=== PATIENT | female | born 1970 | race Caucasian/White ===

== ENCOUNTER 2016-06-15 19:27 | Emergency (ER) | payer OTHER, BC ==
[2016-06-15] MEDS ORDERED: ASPIRIN 81 MG TABLET, CHEWABLE PO ONE (20:21)
--- NOTE | 2016-06-15 20:50 | ER Document Report ---
ED Medical Screen (RME) - General Chief Complaint: Chest Tightness Stated Complaint: CHEST TIGHTNESS Notes: h/o svt with two ablations. she was wearing a 48 heart monitor which she turned in on wednesday constant sob and chest pressure for 7 days. 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 A comprehensive ED assessment and evaluation of the patient, analysis of test results and completion of the medical decision making process will be conducted by additional ED providers. TRAVEL OUTSIDE OF THE [place] IN LAST 30 DAYS: No - Related Data Allergies/Adverse Reactions: No Known Allergies Allergy (Verified 07/30/15 08:37) Past Medical History - Past Medical History Cardiac Medical History: Denies: Hx Coronary Artery Disease, Hx Heart Attack, Hx Hypertension Pulmonary Medical History: Denies: Hx Asthma, Hx Bronchitis, Hx COPD, Hx Pneumonia Neurological Medical History: Denies: Hx Cerebrovascular Accident, Hx Seizures Musculoskeltal Medical History: Denies Hx Arthritis Past Surgical History: Reports: Hx Hysterectomy - Immunizations Hx Diphtheria, Pertussis, Tetanus Vaccination: Yes
[2016-06-15 22:50] LABS: ABSOLUTE EOSINOPHILS # (AUTO) 0.2 10^3/uL (0.0-0.6); ABSOLUTE LYMPHOCYTES (AUTO) 1.6 10^3/uL (0.5-4.7); ABSOLUTE MONOCYTES (AUTO) 0.5 10^3/uL (0.1-1.4); ABSOLUTE NEUT (AUTO) 4.2 10^3/uL (1.7-8.2); BASOPHILS % (AUTO) 0.5 % (0-2); EOSINOPHILS % (AUTO) 2.3 % (0-6); HEMATOCRIT 43.2 % (36.0-47.0); HEMOGLOBIN 14.1 g/dL (12.0-15.5); HGB HCT DIFFERENCE -0.9; LYMPHOCYTES % (AUTO) 24.4 % (13-45); MEAN CORPUSCULAR HGB CONC 32.7 g/dL (32.0-36.0); MEAN CORPUSCULAR VOLUME 89 fl (80-97); MONOCYTES % (AUTO) 8.3 % (3-13); RED BLOOD COUNT 4.87 10^6/uL (3.72-5.28); RED CELL DISTRIBUTION WIDTH 14.1 % (11.5-14.0); SEGMENTED NEUTROPHILS % (AUTO) 64.5 % (42-78); WHITE BLOOD COUNT 6.6 10^3/uL (4.0-10.5)
--- NOTE | 2016-06-15 23:11 | ER Document Report ---
ED General - General Chief Complaint: Chest Tightness Stated Complaint: CHEST TIGHTNESS Notes: Patient is 45-year-old female who presents with complaint of pressure type sensation in her chest and goes until left shoulder and into her left arm. She says she's had this in the past whenever she is about to go to [facility]. She says she feels is a 4 heart is skipping beats. She had a previous ablation. She's followed by Dr. Chi, [employer] in [place]. She saw him last week when the symptoms first started. She was placed on a Holter monitor. She has not yet received the results of the Holter monitor. No fevers. No vomiting. No history of coronary disease. Showed a normal stress test 2-3 years ago. No other complaints at this time. TRAVEL OUTSIDE OF THE [place] IN LAST 30 DAYS: No - Related Data Allergies/Adverse Reactions: No Known Allergies Allergy (Verified 07/30/15 08:37) Past Medical History - Social History Smoking Status: Unknown if Ever Smoked Frequency of alcohol use: None Drug Abuse: None Family History: Reviewed & Not Pertinent Patient has suicidal ideation: No Patient has homicidal ideation: No - Past Medical History Cardiac Medical History: Denies: Hx Coronary Artery Disease, Hx Heart Attack, Hx Hypertension Pulmonary Medical History: Denies: Hx Asthma, Hx Bronchitis, Hx COPD, Hx Pneumonia Neurological Medical History: Denies: Hx Cerebrovascular Accident, Hx Seizures Renal/ Medical History: Denies: Hx Peritoneal Dialysis Musculoskeltal Medical History: Denies Hx Arthritis Past Surgical History: Reports: Hx Hysterectomy - Immunizations Hx Diphtheria, Pertussis, Tetanus Vaccination: Yes Review of Systems - Review of Systems Notes: My Normal Review Basic REVIEW OF SYSTEMS: CONSTITUTIONAL : Denies fever, chills, or sweats. Denies recent illness. EENT: Denies eye, ear, throat, or mouth pain or symptoms. Denies nasal or sinus congestion. CARDIOVASCULAR: Chest pressure. Palpitations. RESPIRATORY: Denies cough, cold, or chest congestion. Denies shortness of breath, difficulty breathing, or wheezing. GASTROINTESTINAL: Denies abdominal pain. Denies nausea, vomiting, or diarrhea. Denies constipation. Last BM: MUSCULOSKELETAL: Denies neck or back pain or joint pain or swelling. SKIN: Denies rash or skin lesions. NEUROLOGICAL: Denies altered mental status or loss of consciousness. Denies headache. Denies weakness or paralysis or loss of use of either side. Denies problems with gait or speech. Denies sensory or motor loss. ALL OTHER SYSTEMS REVIEWED AND NEGATIVE. Physical Exam - Vital signs Vitals: Temp Pulse Resp BP Pulse Ox 97.5 F 67 16 107/45 L 100 06/15/16 20:43 06/15/16 20:43 06/15/16 20:43 06/15/16 20:43 06/15/16 20:43 - Notes Notes: General Appearance: Well nourished, alert, cooperative, no acute distress, no obvious discomfort. Well-appearing. Vitals: reviewed, See vital signs table. Head: no swelling or tenderness to the head Eyes: PERRL, EOMI, Conjuctiva clear Mouth: No decreasd moisture Neck: Supple, no neck tenderness, No thyromegaly Lungs: No wheezing, No rales, No rhonci, No accessory muscle use, good air exchange bilaterally. Heart: Normal rate, irregular rythm, No murmur, no rub Abdomen: Normal BS, soft, No rigidity, No abdominal tenderness, No guarding, no rebound, no abdominal masses, no organomegaly Extremities: strength 5/5 in all extremities, good pulses in all extremities, no swelling or tenderness in the extremities, no edema. Skin: warm, dry, appropriate color, no rash Neuro: speech clear, oriented x 3, normal affect, responds appropriately to questions. Course - Vital Signs Vital signs: Temp Pulse Resp BP Pulse Ox 97.5 F 67 16 107/45 L 100 06/15/16 20:43 06/15/16 20:43 06/15/16 20:43 06/15/16 20:43 06/15/16 20:43 - Laboratory Result Diagrams: 06/15/16 22:40 06/15/16 23:09 Laboratory results interpreted by me: 06/15/16 06/15/16 22:40 23:09 RDW 14.1 H Chloride 108 H BUN 24 H Alkaline Phosphatase 131 H Total Protein 6.2 L - EKG Interpretation by Me Additional EKG results interpreted by me: 06/15/16 23:10 EKG is reviewed and interpreted by me. EKG shows normal sinus rhythm with rate of [address] segment elevation or depression. No ischemic T wave inversions. Occasional PVC. DC interval, QRS duration, QTC intervals are within normal range. No old EKG available for comparison. - Transfer of Care Notes: 06/16/16 00:59 Patient's his symptoms he'll just like when she has felt the past but before she goes and SVT. Her symptoms have now been ongoing for 6 days. She's had no episodes of SVT. On the monitor she has recurrent PACs. On her EKG she had no evidence of ongoing ischemia. Her cardiac enzymes are negative despite her having the pressure sensation in her chest for 6 days. I do not suspect coronary artery disease is playing a role in her symptoms. Symptoms could be related to frequent PACs which she is now having which she does not room her having in the past. This is not uncommon for individuals who have received ablations in the past. At this time feel she is safe to be discharged home. 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 I encourage her to call him in the morning to make close follow-up appointment. I encourage her to return to ER immediately if she has worsening of her symptoms, difficulty breathing, rapid heartbeat, or she feels unwell. Patient agrees with plan will be discharged home. Dictation of this chart was performed using voice recognition software; therefore, there may be some unintended grammatical errors. Discharge - Discharge Clinical Impression: Palpitations Chest pain Qualifiers: Chest pain type: unspecified Qualified Code(s): R07.9 - Chest pain, unspecified Condition: Good Disposition: HOME, SELF-CARE Additional Instructions: CHEST PAIN OF UNCLEAR CAUSE: The exact cause of your chest pain isn't clear. Fortunately, there is no evidence of a dangerous medical condition. Further testing may be required to find the source of the pain. Most often, we find that this pain is coming from the chest wall -- the muscles or rib joints in the chest. But chest pain can come from the lung and lung lining, the esophagus, the heart valves or heart lining, and even the stomach or gallbladder. Rest. Eat lightly until the pain is gone. We may prescribe medicine for pain and inflammation. You should call the physician immediately if the pain radiates to the shoulder, jaw or arms; if you start to run a fever or develop a cough; or if you develop shortness of breath, or other new or alarming symptoms. NORMAL EXAM AND WORKUP: At this time, your examination and workup show no significant abnormality. No significant abnormal physical findings were noted. All laboratory, EKG, and imaging (x-ray) studies that were ordered show no significant abnormality. Although your examination and all studies that were ordered showed no significant abnormal finding, there are no examinations and no studies that are 100% accurate. There is always the possibility that some abnormality could exist and not be detected with physical examination or within the limits and capabilities of laboratory and other studies. You should return or follow up as you were instructed on your visit today for further evaluation if your symptoms do not resolve. FOLLOW-UP CARE: If you have been referred to a physician for follow-up care, call the physician s office for an appointment as you were instructed or within the next two days. If you experience worsening or a significant change in your symptoms, notify the physician immediately or return to the Emergency Department at any time for re-evaluation. Please return to ER immediately if you have worsening pain, difficulty breathing , rapid heartbeat, or feel unwell.
[2016-06-15 23:40] LABS: ALANINE AMINOTRANSFERASE 32 U/L (9-52); ALBUMIN 3.8 g/dL (3.5-5.0); ALKALINE PHOSPHATASE 131 U/L (38-126); ANION GAP 8 (5-19); ASPARTATE AMINO TRANSFERASE 23 U/L (14-36); BILIRUBIN,TOTAL 0.6 mg/dL (0.2-1.3); BLOOD UREA NITROGEN 24 mg/dL (7-20); CALCIUM 9.3 mg/dL (8.4-10.2); CARBON DIOXIDE 26 mmol/L (22-30); CHLORIDE 108 mmol/L (98-107); CREATINE KINASE 96 U/L (30-135); CREATININE RESULT 0.65 mg/dL (0.52-1.25); GLUCOSE 89 mg/dL (75-110); SODIUM 142.3 mmol/L (137-145); TOTAL PROTEIN 6.2 g/dL (6.3-8.2)
[2016-06-15 23:51] LABS: CREATINE KINASE MB 2.01 ng/mL (<4.55)
[2016-06-15] MEDS ORDERED: LORAZEPAM INJ 2 MG/1 ML VIAL IV ONE (23:53)
[2016-06-15 23:57] LABS: TROPONIN I < 0.012 ng/mL
[2016-06-16 01:34] VITALS: BP 98/63
--- NOTE | 2016-06-16 08:04 | EKG REPORT ---
SEVERITY:- ABNORMAL ECG - SINUS RHYTHM PROBABLE LEFT ATRIAL ABNORMALITY LEFT ANTERIOR FASCICULAR BLOCK BORDERLINE T WAVE ABNORMALITIES : Confirmed by: Cesar Bassett MD 16-Jun-2016 08:03:32
== END 2016-06-16 01:34 | disposition home or self-care (01) ==
LOC: ER 19:27
DX: R07.89 Other chest pain (principal); R00.2 Palpitations; I49.1 Atrial premature depolarization; Z86.79 Personal history of other diseases of the circulatory system; Z98.890 Other specified postprocedural states
CPT/HCPCS: 93005; 99285; 96374; 36415; 82553; 82550; 83735; 85025; 80053; 84484; 71010; 93010; J2060

== ENCOUNTER → 2017-10-22 | Outpatient (CLI) | payer OTHER, BC ==
--- NOTE | 2017-10-22 14:00 | WOMENS IMAGING REPORT ---
EXAM DESCRIPTION: 3D SCREENING MAMMO BILAT COMPLETED DATE/TIME: 10/22/2017 10:06 am REASON FOR STUDY: ROUTINE SCREENING;Z12.31 Z12.31 ENCNTR SCREEN MAMMOGRAM FOR MALIGNANT NEOPLASM OF BENOIT COMPARISON: 2012, [id number] TECHNIQUE: Standard craniocaudal and mediolateral oblique views of each breast recorded using digita l acquisition and breast tomosynthesis. LIMITATIONS: None. FINDINGS: No masses, calcifications or architectural distortion. No areas of suspicion. Read with the assistance of CAD. .[facility] - R2 Cenova Version 1.3 .[facility] Imaging - R2 Cenova Version 1.3 .[facility] Imaging - R2 Cenova Version 2.4 .[facility] - R2 Cenova Version 2.4 .[facility] - R2 Percher Version 9.2 IMPRESSION: NORMAL MAMMOGRAM. BIRADS 1. BREAST DENSITY: b. There are scattered areas of fibroglandular density. BIRAD: 1 NEGATIVE RECOMMENDATION: ROUTINE SCREENING COMMENT: The patient has been notified of the results by letter per SA requirements. Additional no tification policies are in place for contacting patient with suspicious or incomplete findings. Quality ID #225: The [employer] recommends an annual screening mammogram for women aged 40 years or over. This facility utilizes a reminder system to ensure that all patients receive reminder letters, and/or direct phone calls for appointments. This includes reminders for routine scr eening mammograms, diagnostic mammograms, or other Breast Imaging Interventions when appropriate. Th is patient will be placed in the appropriate reminder system. The [employer] (ACR) has developed recommendations for screening MRI of the breast s in certain patient populations, to be used in conjunction with mammography. Breast MRI surveillanc e may be appropriate for women with more than 20% lifetime risk of developing breast cancer as deter mined by genetic testing, significant family history of the disease, or history of mantle radiation f or Hodgkins Disease. ACR Practice Guidelines 2008. DBT Technology DBT is a type of tomographic mammography. With conventional mammography, overlapping breast tissue ma y make lesions difficult to detect, even with good compression. DBT uses an x-ray tube that rotates a round the breast, taking images at different angles. These images are then combined to create thin sl ices of the breast that the radiologist can view as a 3D reconstruction. The Nonpareil unit can perform full-field digital mammograms (2D imaging); or DBT (3D imaging); or both, in a combination mode that quickly performs both the mammogram and the tomosynthesis scan while the breast is still compressed. PQRS 6045F: Fluoroscopic imaging is not utilized for breast tomosynthesis. TECHNICAL DOCUMENTATION: FINDING NUMBER: (1) ASSESSMENT: (1) JOB ID: [id number] [employer]- All Rights Reserved Reading location - IP/workstation name: [email or web address]
== END ==
LOC: WI 09:04
PROVIDERS: ATTEND Advanced Practice Midwife
DX: Z12.31 Encounter for screening mammogram for malignant neoplasm of breast (principal)
CPT/HCPCS: 77063; 77067

== ENCOUNTER → 2019-07-04 | Outpatient (CLI) | payer OTHER, BC ==
--- NOTE | 2019-07-04 09:17 | WOMENS IMAGING REPORT ---
EXAM DESCRIPTION: 3D SCREENING MAMMO BILAT COMPLETED DATE/TIME: 07/04/2019 8:23 am REASON FOR STUDY: Z12.31 SCREENING MAMMO Z12.31 ENCNTR SCREEN MAMMOGRAM FOR MALIGNANT NEOPLASM OF B RE COMPARISON: 2014 to 2017 EXAM PARAMETERS: Views: Standard craniocaudal and mediolateral oblique views of each breast recorded using digital acquisition and breast tomosynthesis. Read with the assistance of CAD. .[facility] - R2 Buzzle Buffer Version 9.2 LIMITATIONS: None. FINDINGS: No suspicious masses, suspicious calcifications or architectural distortion. No areas of c oncern. IMPRESSION: NEGATIVE MAMMOGRAM. BIRADS 1. BREAST DENSITY: b. There are scattered areas of fibroglandular density. BIRAD: ASSESSMENT: 1 NEGATIVE RECOMMENDATION: ROUTINE SCREENING COMMENT: The patient has been notified of the results by letter per MQSA requirements. Additional no tification policies are in place for contacting patient with suspicious or incomplete findings. Quality ID #225: The [employer] recommends an annual screening mammogram for women aged 40 years or over. This facility utilizes a reminder system to ensure that all patients receive reminder letters, and/or direct phone calls for appointments. This includes reminders for routine scr eening mammograms, diagnostic mammograms, or other Breast Imaging Interventions when appropriate. Th is patient will be placed in the appropriate reminder system. TECHNICAL DOCUMENTATION: FINDING NUMBER: (1) ASSESSMENT: (1) JOB ID: [id number] [employer]- All Rights Reserved Reading location - IP/workstation name: [email or web address]
== END ==
LOC: WI 07:45
PROVIDERS: ATTEND Advanced Practice Midwife
DX: Z12.31 Encounter for screening mammogram for malignant neoplasm of breast (principal)
CPT/HCPCS: 77063; 77067

== ENCOUNTER → 2020-04-10 | Outpatient (CLI) | payer OTHER, BC ==
--- NOTE | 2020-04-10 17:09 | RADIOLOGY REPORT (SQ) ---
EXAM DESCRIPTION: U/S THYROID/SFT TISS HD NECK IMAGES COMPLETED DATE/TIME: 04/10/2020 3:49 pm REASON FOR STUDY: (R13.10)DYSPHAGIA, UNSPECIFIED;(Z13.29)ENCOUNTER FOR SCREENING FOR OTH SUSP R13.10 DYSPHAGIA, UNSPECIFIED Z13.29 ENCOUNTER FOR SCREENING FOR OTH SUSPECTED ENDOCRINE D dysphagia. S creening for thyroid disorder. Family history thyroid cancer. COMPARISON: None. TECHNIQUE: Dynamic and static kennedy-scale images acquired of the thyroid gland. Selected additional c olor/power Doppler images recorded. All images stored to PACS. LIMITATIONS: None. FINDINGS: RIGHT LOBE: Normal size. Homogeneous echotexture. 4 mm spongiform nodule at the right mi dpole. LEFT LOBE: Normal size. Homogeneous echotexture. No cystic or solid masses. ISTHMUS: Normal size. Homogeneous echotexture. No cystic or solid masses. OTHER: No other significant finding. IMPRESSION: Normal thyroid ultrasound. No suspicious thyroid nodules. TECHNICAL DOCUMENTATION: JOB ID: [id number] 2010 [employer]- All Rights Reserved Reading location - IP/workstation name: [email or web address]
== END ==
LOC: RAD 16:24
PROVIDERS: ATTEND Registered Nurse
DX: R13.10 Dysphagia, unspecified (principal); Z13.29 Encounter for screening for other suspected endocrine disorder
CPT/HCPCS: 76536

== ENCOUNTER 2020-05-02 06:32 | Observation (INO) | payer OTHER, BC ==
[2020-05-02] MEDS ORDERED: NORMAL SALINE 1000 ML 1,000 ML IV ONE ×2 (07:02→11:24)
[2020-05-02] MEDS ORDERED: MORPHINE SULFATE 10 MG/ML INJ IV ONE (07:03)
[2020-05-02] MEDS ORDERED: ONDANSETRON HCL INJ/PF 4 MG/2 ML SDV IV ONE (07:03)
[2020-05-02 07:44] LABS: HEMOGLOBIN 12.8 g/dL (12.0-15.5); MEAN CORPUSCULAR HEMOGLOBIN 28.9 pg (27.0-33.4); MEAN CORPUSCULAR HGB CONC 32.7 g/dL (32.0-36.0); MEAN CORPUSCULAR VOLUME 88 fl (80-97); RED BLOOD COUNT 4.42 10^6/uL (3.72-5.28); RED CELL DISTRIBUTION WIDTH 15.6 % (11.5-14.0); WHITE BLOOD COUNT 14.7 10^3/uL (4.0-10.5)
[2020-05-02 08:01] LABS: ABSOLUTE LYMPHOCYTES# (MANUAL) 0.6 10^3/uL (0.5-4.7); ABSOLUTE MONOCYTES # (MANUAL) 0.3 10^3/uL (0.1-1.4); BAND NEUTROPHILS % (MANUAL) 2 % (3-5); BASOPHILS % (MANUAL) 0 % (0-2); EOSINOPHILS % (MANUAL) 0 % (0-6); LYMPHOCYTES % (MANUAL) 4 % (13-45); MONOCYTES % (MANUAL) 2 % (3-13); SEGMENTED NEUTROPHILS % (MAN) 92 % (42-78); TOTAL CELLS COUNTED 100
[2020-05-02 08:02] LABS: PLATELET CLUMPS PRESENT; PLATELET COMMENT ADEQUATE; PLATELET COUNT 253 10^3/uL (150-450); RBC MORPHOLOGY COMMENT NORMO-CYTIC/CHROMIC
[2020-05-02 08:15] LABS: ALKALINE PHOSPHATASE 143 U/L (38-126); ASPARTATE AMINO TRANSFERASE 27 U/L (14-36); BILIRUBIN,TOTAL 0.7 mg/dL (0.2-1.3); BLOOD UREA NITROGEN 12 mg/dL (7-20); CALCIUM 9.2 mg/dL (8.4-10.2); CARBON DIOXIDE 28 mmol/L (22-30); CHLORIDE 105 mmol/L (98-107); GLUCOSE 126 mg/dL (75-110); POTASSIUM 3.9 mmol/L (3.6-5.0); TOTAL PROTEIN 6.5 g/dL (6.3-8.2)
[2020-05-02 08:22] LABS: ANION GAP 5 (5-19)
[2020-05-02] MEDS ORDERED: KETOROLAC TROMETHAMINE 60 MG/2 ML SDV ONE (09:02)
[2020-05-02] MEDS ORDERED: METOCLOPRAMIDE HCL INJ/PF 10 MG/2 ML SDV ONE (09:02)
[2020-05-02] MEDS ORDERED: DIPHENHYDRAMINE HCL 50 MG/ML VIAL ONE (09:02)
[2020-05-02] MEDS ORDERED: ROCURONIUM BROMIDE INJ 50 MG/5 ML VIAL IV ONE (09:02)
[2020-05-02] MEDS ORDERED: SUCCINYLCHOLINE CHLORIDE INJ 200 MG/10 ML VIAL ONE (09:02)
[2020-05-02] MEDS ORDERED: ONDANSETRON HCL INJ/PF 4 MG/2 ML SDV ONE (09:02)
[2020-05-02] MEDS ORDERED: DEXAMETHASONE SOD PHOSPHATE INJ 4 MG/1 ML VIAL ONE (09:02)
[2020-05-02 09:44] LABS: APPEARANCE,URINE CLEAR; BILIRUBIN,URINE NEGATIVE (NEGATIVE); COLOR,URINE YELLOW; GLUCOSE, URINE NEGATIVE (NEGATIVE); KETONES,URINE TRACE mg/dL (NEGATIVE); PROTEIN,URINE NEGATIVE (NEGATIVE); URINE SPECIFIC GRAVITY 1.014; UROBILINOGEN,URINE NEGATIVE mg/dL (<2.0)
--- NOTE | 2020-05-02 10:32 | RADIOLOGY REPORT (SQ) ---
EXAM DESCRIPTION: CT ABD/PELVIS WITH IV ORAL IMAGES COMPLETED DATE/TIME: 05/02/2020 10:12 am REASON FOR STUDY: rlq pain COMPARISON: None. TECHNIQUE: CT scan of the abdomen and pelvis performed using helical scanning technique with dynamic intravenous contrast injection. No oral contrast. Images reviewed with lung, soft tissue, and bone windows. Reconstructed coronal and sagittal MPR images reviewed. Delayed images for evaluation of the urinary system also acquired. All images stored on PACS. All CT scanners at this facility use dose modulation, iterative reconstruction, and/or weight based d osing when appropriate to reduce radiation dose to as low as reasonably achievable (ALARA). [facility]: Dose Right [facility]: CareDose [facility]: Dose Right [facility]: Teradose 4D [facility]: Sentons CONTRAST TYPE AND DOSE: contrast/concentration: Isovue 350.00 mmol/ml; Total Contrast Delivered: 83. 0 ml; Total Saline Delivered: 40.0 ml RENAL FUNCTION: BUN 12; creatinine 0.57 RADIATION DOSE: CT Rad equipment meets quality standard of care and radiation dose reduction techniq ues were employed. CTDIvol: 6.4 - 6.4 mGy. DLP: 650 mGy-cm.. LIMITATIONS: None. FINDINGS: LOWER CHEST: No significant findings. No nodules or infiltrates. LIVER: Normal size. No masses. Mild intrahepatic biliary dilatation. SPLEEN: Normal size. No focal lesions. PANCREAS: No masses. No significant calcifications. No adjacent inflammation or peripancreatic fluid collections. Pancreatic duct not dilated. GALLBLADDER: Surgically absent. ADRENAL GLANDS: No significant masses or asymmetry. RIGHT KIDNEY AND URETER: No solid masses. Superior pole cortical cyst. No significant calcificatio ns. No hydronephrosis or hydroureter. LEFT KIDNEY AND URETER: No solid masses. Focal scarring of the superior pole ports tear cortex. No significant calcifications. No hydronephrosis or hydroureter. AORTA AND VESSELS: No aneurysm. No dissection. Renal arteries, SMA, celiac without stenosis. RETROPERITONEUM: No retroperitoneal adenopathy, hemorrhage or masses. BOWEL AND PERITONEAL CAVITY: Status post bariatric surgery. No bowel obstruction. No mass. APPENDIX: The appendix is fluid-filled and dilated to 14 mm in greatest orthogonal dimension, demonst rating mural thickening and surrounding mesenteric fat stranding. No evidence of perforation. PELVIS: No mass. No free fluid. Normal bladder. ABDOMINAL WALL: No masses. No hernias. BONES: Degenerative changes are seen at hips and spine. OTHER: No other significant finding. IMPRESSION: Uncomplicated acute appendicitis. Chronic and incidental findings as detailed above. TECHNICAL DOCUMENTATION: JOB ID: [id number] Quality ID # [id number]: Final reports with documentation of one or more dose reduction techniques (e.g., Au tomated exposure control, adjustment of the mA and/or kV according to patient size, use of iterative reconstruction technique) 2010 [employer]- All Rights Reserved Reading location - IP/workstation name: [email or web address]
--- NOTE | 2020-05-02 11:23 | ER Document Report ---
ED General - General Chief Complaint: Abdominal Pain >50 Stated Complaint: ABDOMINAL PAIN Time Seen by Provider: 05/02/20 06:57 Primary Care Provider: MARY QUINONEZ MD [Primary Care Provider] - Follow up as needed Mode of Arrival: Ambulatory Information source: Patient TRAVEL OUTSIDE OF THE [place] IN LAST 30 DAYS: No - HPI Notes: Patient presents with right lower quadrant abdominal pain. States started yesterday. Is been constant and progressive becoming worse. She states she is not had anything to eat or drink since yesterday at supper. She is been nauseous with no vomiting. She denies any vaginal symptoms. No problems with urine or stool. This pain is severe and worse with movement. Is better with rest. No significant radiation of the pain. States she did have a gastric bypass in 2007 but has had no problems with the gastric bypass since the surgery. - Related Data Allergies/Adverse Reactions: No Known Allergies Allergy (Verified 06/16/16 05:41) Home Medications: methotraxate, folic acid, Past Medical History - General Information source: Patient - Social History Smoking Status: Never Smoker Frequency of alcohol use: None Drug Abuse: None Family History: Reviewed & Not Pertinent - Past Medical History Cardiac Medical History: Denies: Hx Coronary Artery Disease, Hx Heart Attack, Hx Hypertension Pulmonary Medical History: Denies: Hx Asthma, Hx Bronchitis, Hx COPD, Hx Pneumonia Neurological Medical History: Denies: Hx Cerebrovascular Accident, Hx Seizures Renal/ Medical History: Denies: Hx Peritoneal Dialysis Musculoskeletal Medical History: Denies Hx Arthritis Past Surgical History: Reports: Hx Hysterectomy - Immunizations Hx Diphtheria, Pertussis, Tetanus Vaccination: Yes Review of Systems - Review of Systems Constitutional: denies: Chills, Fever Cardiovascular: denies: Chest pain, Palpitations Respiratory: denies: Cough, Short of breath -: Yes All other systems reviewed and negative Physical Exam - Vital signs Vitals: Temp Pulse Resp BP Pulse Ox 97.8 F 90 24 H 108/50 L 98 05/02/20 06:40 05/02/20 06:40 05/02/20 06:40 05/02/20 06:40 05/02/20 06:40 Interpretation: Normal - General General appearance: Appears well, Alert - HEENT Head: Normocephalic, Atraumatic Eyes: Normal Pupils: PERRL - Respiratory Respiratory status: No respiratory distress Chest status: Nontender Breath sounds: Normal Chest palpation: Normal - Cardiovascular Rhythm: Regular Heart sounds: Normal auscultation Murmur: No - Abdominal Inspection: Normal Distension: No distension Bowel sounds: Normal Tenderness: Tender - Right lower quadrant is tender to palpation with positive rebound and guarding. Patient does have peritoneal signs. Organomegaly: No organomegaly - Back Back: Normal, Nontender - Extremities General upper extremity: Normal inspection, Nontender, Normal color, Normal ROM, Normal temperature General lower extremity: Normal inspection, Nontender, Normal color, Normal ROM, Normal temperature, Normal weight bearing. No: Moon's sign - Neurological Neuro grossly intact: Yes Cognition: Normal Orientation: AAOx4 Calvin Coma Scale Eye Opening: Spontaneous Serene Coma Scale Verbal: Oriented Calvin Coma Scale Motor: Obeys Commands Serene Coma Scale Total: 15 Speech: Normal Motor strength normal: LUE, RUE, LLE, RLE Sensory: Normal - Psychological Associated symptoms: Normal affect, Normal mood - Skin Skin Temperature: Warm Skin Moisture: Dry Skin Color: Normal Course - Re-evaluation Re-evalutation: 05/02/20 11:22 Patient presents with right lower quadrant abdominal pain. CT scan is consistent with appendicitis. It appears to be uncomplicated at this time and patient is currently stable with stable hemodynamics. - Vital Signs Vital signs: Temp Pulse Resp BP Pulse Ox 99.0 F 112 H 22 H 132/47 H 98 05/02/20 10:59 05/02/20 10:59 05/02/20 10:59 05/02/20 10:59 05/02/20 10:59 - Laboratory Result Diagrams: 05/02/20 07:28 05/02/20 07:28 Laboratory results interpreted by me: 05/02/20 05/02/20 05/02/20 07:28 07:28 09:24 WBC 14.7 H RDW 15.6 H Seg Neuts % (Manual) 92 H Band Neutrophils % 2 L Lymphocytes % (Manual) 4 L Monocytes % (Manual) 2 L Abs Neuts (Manual) 13.8 H Glucose 126 H Alkaline Phosphatase 143 H Urine Ketones TRACE H Leukocyte Esterase Rfl MODERATE H - Diagnostic Test Radiology reviewed: Image reviewed, Reports reviewed Discharge - Discharge Clinical Impression: Acute appendicitis Qualifiers: Acute appendicitis type: with localized peritonitis Appendicitis gangrene presence: without gangrene Appendicitis perforation presence: without perforation Appendicitis abscess presence: without abscess Qualified Code(s): K35.30 - Acute appendicitis with localized peritonitis, without perforation or gangrene Condition: Serious Disposition: ADMITTED INPATIENT Admitting Provider: Surgicalist Unit Admitted: Surgical Floor Referrals: MARY QUINONEZ MD [Primary Care Provider] - Follow up as needed
[2020-05-02] MEDS ORDERED: SUGAMMADEX SODIUM 200 MG/2 ML SDV IV ONE (12:46)
[2020-05-02] MEDS ORDERED: MIDAZOLAM 2 MG/2 ML INJ ONE (12:46)
[2020-05-02] MEDS ORDERED: EPHEDRINE SULFATE INJ 50 MG/1 ML AMPULE ONE (12:46)
[2020-05-02] MEDS ORDERED: FENTANYL CITRATE INJ/PF 100 MCG/2 ML AMPUL ONE (12:46)
[2020-05-02] MEDS ORDERED: PROPOFOL INJ 200 MG/20 ML VIAL IV ONE (12:46)
[2020-05-02] MEDS ORDERED: BUPIVACAINE HCL 0.25 % INJ/PF (2.5 MG/1 ML) 30 ML VIAL ONE (12:46)
[2020-05-02] MEDS ORDERED: CEFAZOLIN INJ 1 GM VIAL ONE (13:13)
[2020-05-02] MEDS ORDERED: METRONIDAZOLE 500 MG/NS RTU 500 MG/100 ML RTUPB IV ONE (13:13)
[2020-05-02] MEDS ORDERED: SCOPOLAMINE HYDROBROMIDE 1.5 MG PATCH.TD72 ONE (13:21)
--- NOTE | 2020-05-02 13:27 | PDOC H&P ---
History of Present Illness Admission Date/PCP: 05/02/20 11:30 MARY QUINONEZ MD Patient complains of: abdominal pain History of Present Illness: ALEX VAZ is a 49 year old female with a 2-day history of abdominal pain. Her pain began in her right lower quadrant, and intensified throughout the night. Her pain is sharp and stabbing. It is severe (10 out of 10). It radiates to her left lower quadrant. She presented to the emergency department, where a CT scan was performed. She was found to have acute appendicitis on CT. Movement and palpation make her pain worse. Pain medications are the only thing that have made it better. She reports subjective fevers and chills. She denies melena, hematochezia, hematemesis, chest pain, shortness of breath, headache, dizziness, orthostasis, blurry vision. Past Medical History Cardiac Medical History: Denies: Coronary Artery Disease, Myocardial Infarction, Hypertension Pulmonary Medical History: Denies: Asthma, Bronchitis, Chronic Obstructive Pulmonary Disease (COPD), Pneumonia Neurological Medical History: Denies: Seizures Musculoskeltal Medical History: Denies: Arthritis Hematology: Denies: Anemia Past Surgical History Past Surgical History: Reports: Hysterectomy Social History Smoking Status: Never Smoker Hx Recreational Drug Use: No Hx Prescription Drug Abuse: No Family History Family History: Reviewed & Not Pertinent Parental Family History Reviewed: Yes Children Family History Reviewed: Yes Sibling(s) Family History Reviewed.: Yes Medication/Allergy Home Medications: Cholecalciferol (Vitamin D3) [Vitamin D] 1,000 unit PO DAILY 07/30/15 Multivit, Iron, Min #7, FA [Optisource Tablet Chew] 2 each PO BID 07/30/15 Nadolol 20 mg PO DAILY 07/30/15 Allergies/Adverse Reactions: No Known Allergies Allergy (Verified 06/16/16 05:41) Review of Systems Constitutional: PRESENT: chills, fatigue. ABSENT: headache(s), weakness Eyes: ABSENT: visual disturbances Ears: ABSENT: hearing changes Nose, Mouth, and Throat: ABSENT: mouth pain, sore throat Cardiovascular: ABSENT: chest pain Respiratory: ABSENT: cough Gastrointestinal: PRESENT: abdominal pain. ABSENT: hematemesis, hematochezia, melena Genitourinary: ABSENT: dysuria Musculoskeletal: ABSENT: back pain Integumentary: ABSENT: pruritus, rash Neurological: ABSENT: confusion, convulsions, dizziness Psychiatric: ABSENT: anxiety, depression Endocrine: ABSENT: cold intolerance, heat intolerance Hematologic/Lymphatic: ABSENT: easy bleeding, easy bruising Physical Exam Vital Signs: Temp Pulse Resp BP Pulse Ox 99.0 F 112 H 22 H 132/47 H 98 05/02/20 13:10 05/02/20 13:10 05/02/20 13:10 05/02/20 10:59 05/02/20 13:10 Intake & Output 05/01/20 05/02/20 05/03/20 06:59 06:59 06:59 Intake Total 1999 Balance 1999 Weight 73.6 kg General appearance: PRESENT: no acute distress, cooperative Head exam: PRESENT: atraumatic, normocephalic Eye exam: PRESENT: EOMI, PERRLA. ABSENT: scleral icterus Mouth exam: PRESENT: moist, neck supple Neck exam: ABSENT: meningismus, tenderness, thyromegaly Respiratory exam: PRESENT: unlabored. ABSENT: tachypnea, wheezes Cardiovascular exam: PRESENT: tachycardia GI/Abdominal exam: PRESENT: guarding, rebound, tenderness Rectal exam: PRESENT: deferred Extremities exam: ABSENT: clubbing Musculoskeletal exam: ABSENT: deformity Neurological exam: PRESENT: alert, awake, oriented to person, oriented to place, oriented to time, oriented to situation, CN II-XII grossly intact. ABSENT: motor sensory deficit Psychiatric exam: ABSENT: agitated, anxious, depressed Focused psych exam: ABSENT: delusional Skin exam: ABSENT: cyanosis, erythema, jaundice Results Laboratory Results: 05/02/20 07:28 05/02/20 07:28 05/02/20 05/02/20 05/02/20 07:28 07:28 09:24 WBC 14.7 H RBC 4.42 Hgb 12.8 Hct 39.0 MCV 88 MCH 28.9 MCHC 32.7 RDW 15.6 H Plt Count 253 Seg Neutrophils % Not Reportable Sodium 137.3 Potassium 3.9 Chloride 105 Carbon Dioxide 28 Anion Gap 5 BUN 12 Creatinine 0.57 Est GFR ( Amer) > 60 Glucose 126 H Calcium 9.2 Total Bilirubin 0.7 AST 27 Alkaline Phosphatase 143 H Total Protein 6.5 Albumin 4.0 Urine Color YELLOW Urine Appearance CLEAR Urine pH 6.0 Ur Specific [place] 1.014 Urine Protein NEGATIVE Urine Glucose (UA) NEGATIVE Urine Ketones TRACE H Urine Blood NEGATIVE Urine RBC (Auto) 1 Impressions: Abdomen/Pelvis CT 05/02/20 00:00 IMPRESSION: Uncomplicated acute appendicitis. Chronic and incidental findings as detailed above. Assessment & Plan - Diagnosis (1) Acute appendicitis Qualifiers: Acute appendicitis type: with localized peritonitis Appendicitis gangrene presence: without gangrene Appendicitis perforation presence: without perforation Appendicitis abscess presence: without abscess Qualified Code(s): K35.30 - Acute appendicitis with localized peritonitis, without perforation or gangrene Is this a current diagnosis for this admission?: Yes - Time Anticipated Discharge Disposition: Home, Self Care Anticipated Discharge Timeframe: within 24 hours - Plan Summary Plan Summary: 49-year-old female with acute appendicitis. She has a physical exam, laboratory evaluation, and imaging consistent with appendicitis. I have recommended appendectomy as definitive surgical treatment. The patient has agreed to this. Plan for lap versus open appendectomy. Risk/benefits discussed, informed consent obtained, and all questions answered.
[2020-05-02] MEDS ORDERED: MORPHINE SULFATE 10 MG/ML INJ IV PRN ×2 (13:51→14:22)
[2020-05-02] MEDS ORDERED: DIPHENHYDRAMINE HCL 50 MG/ML VIAL IV PRN (13:51)
[2020-05-02] MEDS ORDERED: OXYCODONE-ACETAMINOPHEN 5-325 MG TABLET PO PRN ×2 (13:51)
[2020-05-02] MEDS ORDERED: MEPERIDINE HCL/PF INJ 25 MG/1 ML DISP.SYRIN IV PRN (13:51)
[2020-05-02] MEDS ORDERED: PROMETHAZINE HCL INJ 25 MG/1 ML VIAL IV PRN ×2 (13:51)
[2020-05-02] MEDS ORDERED: FENTANYL CITRATE INJ/PF 100 MCG/2 ML AMPUL IV PRN ×3 (13:51)
[2020-05-02] MEDS ORDERED: HYDROCODONE/ACETAMINOPHEN 10-325 MG TABLET PO PRN (14:22)
--- NOTE | 2020-05-02 14:30 | Operative Report ---
Nonrecallable Operative Report DATE OF SURGERY: 05/02/20 PREOPERATIVE DIAGNOSIS: Acute appendicitis POSTOPERATIVE DIAGNOSIS: Acute, nonperforated appendicitis OPERATION: Laparoscopic appendectomy SURGEON: ISIDORO NUÑEZ ANESTHESIA: GA TISSUE REMOVED OR ALTERED: Appendix COMPLICATIONS: None apparent ESTIMATED BLOOD LOSS: Minimal PROCEDURE: Drains/implants: None. Procedure in detail: After informed consent was obtained, the patient was brought into the operating room and laid in the supine position. The area of the abdomen was prepped and draped in a normal sterile fashion. A supraumbilical incision was created with a 15 blade scalpel. Dissection was carried through the subcutaneous tissues using sharp and blunt dissection. The linea alba fascia was incised sharply, the abdomen was entered sharply. The balloon trocar was inserted, and pneumoperitoneum was achieved. A suprapubic 5 mm trocar was placed under direct laparoscopic visualization. A left lower quadrant trocar was placed under laparoscopic visualization. Atraumatic graspers were placed through the 5 mm trochars. The appendix was easily identified. It was inflamed and injected. There was a small amount of seropurulent fluid surrounding the appendix, however there was no evidence of gross perforation. The appendix was elevated anteriorly. The mesoappendix was taken down using the harmonic scalpel. The base of the appendix was encircled using PDS Endoloops x2. The appendix was then amputated, and placed into an Endo Catch bag. The specimen was removed through the supraumbilical port. The camera was reinserted. The right lower quadrant was inspected. It was found to be hemostatic. A small amount of fluid was suctioned from the right lower quadrant and pelvis. No irrigation was used. The 5 mm trochars were then removed under direct laparoscopic visualization. No bleeding was noted. The 12 mm supra umbilical trocar was removed, and pneumoperitoneum was relieved. The supraumbilical fascia was closed using 0 Vicryl suture in [id number] fashion. The overlying skin was closed using 4-0 Vicryl Rapide suture in subcuticular fashion. Dressings were placed, and the procedure was concluded. All sponge, instrument, and needle counts were correct x2. Condition: Stable.
[2020-05-02] MEDS: IBUPROFEN 800 MG TABLET PO SCH (16:48)
[2020-05-02] MEDS: METRONIDAZOLE 500 MG/NS RTU 500 MG/100 ML RTUPB IV SCH (21:19)
[2020-05-02] MEDS: CEFAZOLIN 2 GM/D5W RTU 2 GM/50 ML RTUPB IV SCH (21:23)
[2020-05-03 03:02] VITALS: BP 110/80
[2020-05-03] MEDS: METRONIDAZOLE 500 MG/NS RTU 500 MG/100 ML RTUPB IV SCH (05:40)
--- NOTE | 2020-05-03 06:34 | PDOC DISCHARGE SUMMARY ---
General - Admit/Disc Date/PCP Admission Date/Primary Care Provider: 05/02/20 11:30 MARY QUINONEZ MD Discharge Date: 05/03/20 - Discharge Diagnosis Final Diagnosis: Acute nonperforated appendicitis - Assessment Summary: 49-year-old female omitted to the hospital with appendicitis. The patient was taken to the operating room where laparoscopic appendectomy was successfully performed. The patient did well after surgery. She was taken to the floor in stable condition. She began tolerating a diet, ambulating, tolerating oral pain medications. By 05/03/2020 it was felt that she had reached maximum hospital benefit, and was fit for discharge. - Additional Information Resuscitation Status: Full Code Discharge Diet: As Tolerated Discharge Activity: Balance Activity w/Rest, No Lifting Over 10 Pounds, No Lifting/Push/Pulling Referrals: MARY QUINONEZ MD [Primary Care Provider] - Follow up as needed Prescriptions: Hydrocodone/Acetaminophen [Baxter 10-325 mg Tablet] 1 tab PO Q6HP PRN #14 tablet PRN Reason: For Pain Home Medications: Alprazolam [Xanax 0.25 mg Tablet] 0.25 mg PO DAILY 05/02/20 Folic Acid [Folvite 1 mg Tablet] 1 mg PO SUMOWETHFRSA@1000 05/02/20 Methotrexate Sodium [Rheumatrex 2.5 mg Tablet] 2.5 mg PO TU@1000 05/02/20 Paroxetine HCl [Paxil] 10 mg PO DAILY 05/02/20 Zolmitriptan [Zomig] 5 mg PO DAILY 05/02/20 Hydrocodone/Acetaminophen [Baxter 10-325 mg Tablet] 1 tab PO Q6HP PRN #14 tablet 05/03/20 Additional Information: Discharge home. Diet as tolerated. Activity: No lifting greater than 10 pounds x 2 weeks. Follow-up with the clinic in 7 to 10 days. Okay to shower starting tomorrow (Wednesday). No hot tubs, bath tubs, or swimming pools x2 weeks. Baxter 10/325 mg p.o. every 6 hours as needed for pain. History of Present Illiness History of Present Illness: ALEX VAZ is a 49 year old female with a 2-day history of abdominal pain. Her pain began in her right lower quadrant, and intensified throughout the night. Her pain is sharp and stabbing. It is severe (10 out of 10). It radiates to her left lower quadrant. She presented to the emergency department, where a CT scan was performed. She was found to have acute appendicitis on CT. Movement and palpation make her pain worse. Pain medications are the only thing that have made it better. She reports subjective fevers and chills. She denies melena, hematochezia, hematemesis, chest pain, shortness of breath, headache, dizziness, orthostasis, blurry vision. Physical Exam Vital Signs: Temp Pulse Resp BP Pulse Ox 97.5 F 55 L 18 110/80 99 05/02/20 23:43 05/02/20 23:43 05/02/20 23:43 05/02/20 23:43 05/02/20 23:43 Intake & Output 05/01/20 05/02/20 05/03/20 06:59 06:59 06:59 Intake Total 3450 Output Total 20 Balance 3430 Weight 73.6 kg 76.7 kg Results Laboratory Results: WBC 14.7 10^3/uL (4.0-10.5) H 05/02/20 07:28 RBC 4.42 10^6/uL (3.72-5.28) 05/02/20 07:28 Hgb 12.8 g/dL (12.0-15.5) 05/02/20 07:28 Hct 39.0 % (36.0-47.0) 05/02/20 07:28 MCV 88 fl (80-97) 05/02/20 07:28 MCH 28.9 pg (27.0-33.4) 05/02/20 07:28 MCHC 32.7 g/dL (32.0-36.0) 05/02/20 07:28 RDW 15.6 % (11.5-14.0) H 05/02/20 07:28 Plt Count 253 10^3/uL (150-450) 05/02/20 07:28 Lymph % (Auto) Not Reportable 05/02/20 07:28 [place] % (Auto) Not Reportable 05/02/20 07:28 Eos % (Auto) Not Reportable 05/02/20 07:28 Baso % (Auto) Not Reportable 05/02/20 07:28 Absolute Neuts (auto) Not Reportable 05/02/20 07:28 Absolute Lymphs (auto) Not Reportable 05/02/20 07:28 Absolute Monos (auto) Not Reportable 05/02/20 07:28 Absolute Eos (auto) Not Reportable 05/02/20 07:28 Absolute Basos (auto) Not Reportable 05/02/20 07:28 Total Counted 100 05/02/20 07:28 Seg Neutrophils % Not Reportable 05/02/20 07:28 Seg Neuts % (Manual) 92 % (42-78) H 05/02/20 07:28 Band Neutrophils % 2 % (3-5) L 05/02/20 07:28 Lymphocytes % (Manual) 4 % (13-45) L 05/02/20 07:28 Monocytes % (Manual) 2 % (3-13) L 05/02/20 07:28 Eosinophils % (Manual) 0 % (0-6) 05/02/20 07:28 Basophils % (Manual) 0 % (0-2) 05/02/20 07:28 Abs Neuts (Manual) 13.8 10^3/uL (1.7-8.2) H 05/02/20 07:28 Abs Lymphs (Manual) 0.6 10^3/uL (0.5-4.7) 05/02/20 07:28 Abs Monocytes (Manual) 0.3 10^3/uL (0.1-1.4) 05/02/20 07:28 Absolute Eos (Manual) 0.0 10^3/uL (0.0-0.6) 05/02/20 07:28 Abs Basophils (Manual) 0.0 10^3/uL (0.0-0.2) 05/02/20 07:28 Clumped Platelets PRESENT 05/02/20 07:28 Platelet Comment ADEQUATE 05/02/20 07:28 RBC Morph Comment NORMO-CYTIC/CHROMIC 05/02/20 07:28 Sodium 137.3 mmol/L (137-145) 05/02/20 07:28 Potassium 3.9 mmol/L (3.6-5.0) 05/02/20 07:28 Chloride 105 mmol/L (98-107) 05/02/20 07:28 Carbon Dioxide 28 mmol/L (22-30) 05/02/20 07:28 Anion Gap 5 (5-19) 05/02/20 07:28 BUN 12 mg/dL (7-20) 05/02/20 07:28 Creatinine 0.57 mg/dL (0.52-1.25) 05/02/20 07:28 Est GFR ( Amer) > 60 (>60) 05/02/20 07:28 Est GFR (MDRD) Non-Af > 60 (>60) 05/02/20 07:28 Glucose 126 mg/dL (75-110) H 05/02/20 07:28 Calcium 9.2 mg/dL (8.4-10.2) 05/02/20 07:28 Total Bilirubin 0.7 mg/dL (0.2-1.3) 05/02/20 07:28 Direct Bilirubin 0.0 mg/dL (0.0-0.4) 05/02/20 07:28 Neonat Total Bilirubin Not Reportable 05/02/20 07:28 Neonat Direct Bilirubin Not Reportable 05/02/20 07:28 Neonat Indirect Bili Not Reportable 05/02/20 07:28 AST 27 U/L (14-36) 05/02/20 07:28 ALT 21 U/L (<35) 05/02/20 07:28 Alkaline Phosphatase 143 U/L (38-126) H 05/02/20 07:28 Total Protein 6.5 g/dL (6.3-8.2) 05/02/20 07:28 Albumin 4.0 g/dL (3.5-5.0) 05/02/20 07:28 Urine Color YELLOW 05/02/20 09:24 Urine Appearance CLEAR 05/02/20 09:24 Urine pH 6.0 (5.0-9.0) 05/02/20 09:24 Ur Specific [place] 1.014 05/02/20 09:24 Urine Protein NEGATIVE mg/dL (NEGATIVE) 05/02/20 09:24 Urine Glucose (UA) NEGATIVE mg/dL (NEGATIVE) 05/02/20 09:24 Urine Ketones TRACE mg/dL (NEGATIVE) H 05/02/20 09:24 Urine Blood NEGATIVE (NEGATIVE) 05/02/20 09:24 Urine Nitrite (Reflex) NEGATIVE (NEGATIVE) 05/02/20 09:24 Urine Bilirubin NEGATIVE (NEGATIVE) 05/02/20 09:24 Urine Urobilinogen NEGATIVE mg/dL (<2.0) 05/02/20 09:24 Leukocyte Esterase Rfl MODERATE (NEGATIVE) H 05/02/20 09:24 Urine RBC (Auto) 1 /HPF 05/02/20 09:24 Urine Bacteria (Auto) TRACE /HPF 05/02/20 09:24 Urine WBC (Reflex) 4 /HPF 05/02/20 09:24 Squamous Epi Cells Auto 2 /HPF 05/02/20 09:24 Urine Mucus (Auto) RARE /LPF 05/02/20 09:24 Urine Ascorbic Acid NEGATIVE (NEGATIVE) 05/02/20 09:24 Influenza A (RT-PCR) NEGATIVE (NEGATIVE) 05/02/20 11:22 Influenza B (RT-PCR) NEGATIVE (NEGATIVE) 05/02/20 11:22 RSV (RT-PCR) NEGATIVE (NEGATIVE) 05/02/20 11:22 SARS-CoV-2 Rap RNA(RT-PCR) NEGATIVE (NEGATIVE) 05/02/20 11:22 Impressions: Abdomen/Pelvis CT 05/02/20 00:00 IMPRESSION: Uncomplicated acute appendicitis. Chronic and incidental findings as detailed above.
[2020-05-03] MEDS: CEFAZOLIN 2 GM/D5W RTU 2 GM/50 ML RTUPB IV SCH (06:50)
[2020-05-03 06:52] LABS: ABSOLUTE LYMPHOCYTES (AUTO) 0.8 10^3/uL (0.5-4.7); ABSOLUTE MONOCYTES (AUTO) 0.7 10^3/uL (0.1-1.4); ABSOLUTE NEUT (AUTO) 8.2 10^3/uL (1.7-8.2); BASOPHILS % (AUTO) 0.2 % (0-2); EOSINOPHILS % (AUTO) 0.4 % (0-6); HEMATOCRIT 34.1 % (36.0-47.0); HEMOGLOBIN 11.3 g/dL (12.0-15.5); LYMPHOCYTES % (AUTO) 7.9 % (13-45); MEAN CORPUSCULAR HEMOGLOBIN 29.2 pg (27.0-33.4); MEAN CORPUSCULAR HGB CONC 33.1 g/dL (32.0-36.0); MEAN CORPUSCULAR VOLUME 88 fl (80-97); MONOCYTES % (AUTO) 7.2 % (3-13); PLATELET COUNT 189 10^3/uL (150-450); RED BLOOD COUNT 3.87 10^6/uL (3.72-5.28); RED CELL DISTRIBUTION WIDTH 15.5 % (11.5-14.0); SEGMENTED NEUTROPHILS % (AUTO) 84.3 % (42-78); TOTAL CELLS COUNTED % (AUTO) 100 %; WHITE BLOOD COUNT 9.7 10^3/uL (4.0-10.5)
[2020-05-03 07:13] LABS: BLOOD UREA NITROGEN 13 mg/dL (7-20); CHLORIDE 107 mmol/L (98-107); GLUCOSE 90 mg/dL (75-110); POTASSIUM 3.9 mmol/L (3.6-5.0)
[2020-05-03 07:19] LABS: CARBON DIOXIDE 28 mmol/L (22-30)
[2020-05-03 07:22] LABS: ANION GAP 1 (5-19)
[2020-05-03] MEDS: IBUPROFEN 800 MG TABLET PO SCH (08:54)
[2020-05-03] MEDS ORDERED: CEFAZOLIN SODIUM 2 GM in DEXTROSE 5%-WATER 100 ML IV SCH (14:00)
== END 2020-05-03 11:23 | disposition home or self-care (01) ==
LOC: ER 06:32 → EH 11:30 → INTOOBSV 11:30 → 4W 15:31
DX: K35.30 Acute appendicitis with localized peritonitis, without perforation or gangrene (principal); R50.9 Fever, unspecified; R53.83 Other fatigue; Z79.899 Other long term (current) drug therapy; Z20.828 Contact with and (suspected) exposure to other viral communicable diseases
CPT/HCPCS: 44970; 99285; 96361; 96374; 96375; 36415 ×2; 85025 ×2; 0241U ×4; 80048; 80053; 81001; 88304 ×2; 74177; 00840; G0378 ×2; J2250; J0690 ×3; J3490 ×4; J1100; J1200; J1885; J3010; J2765; J2270; J0330; J2405; J7030; J2704; C9803; 840